=== PATIENT | male | born 1990 | race Caucasian/White ===

== ENCOUNTER 2016-09-18 09:15 | Emergency (ER) | payer BC ==
[~2016-09-18] VITALS: Ht 337.8 cm; Wt 82.2 kg
[2016-09-18 10:37] LABS: HEMATOCRIT 44.5 % (38.0-50.0); MCH 30.8 PG (29.0-34.0); MCHC 34.8 G/DL (30.0-36.0); MCV 88.5 FL (86-99); MEAN PLAT.VOLUME 10.5 uM^3 (9.0-12.4); PLATELET COUNT 244 K/uL (156-360); RBC DIS.WIDTH-CV 12.1 % (11.8-14.6); RBC DIS.WIDTH-SD 39.4 % (39-53); RED BLOOD COUNT 5.03 M/uL (4.00-5.50); WHITE BLOOD COUNT 15.8 K/uL (4.1-10.2)
[2016-09-18 11:10] LABS: ANION GAP 9 MEQ/L (2-14); CHLORIDE 98 MEQ/L (99-109); POTASSIUM 3.6 MEQ/L (3.7-5.4); SAMPLE HEMOLYSIS CHECK 0; SAMPLE ICTERIC CHECK 0; SAMPLE LIPEMIA CHECK 0; SODIUM 131 MEQ/L (136-147)
[2016-09-18 11:16] LABS: GFR ESTIMATE (CALCULATED) > 59 mL/min/; GLUCOSE 113 mg/dL (70-99); LIPASE 16 U/L (1.0-51.0); UREA NITROGEN (BUN) 7 mg/dL (9-23)
[2016-09-18 12:09] LABS: ADD MIUA? YES; BILIRUBIN NEGATIVE; BLOOD NEGATIVE; COLOR YELLOW ((YELLOW)); GLUCOSE (STRIP) NEGATIVE; KETONES NEGATIVE; LEUKOCYTES NEGATIVE; NITRITE NEGATIVE; PROTEIN (STRIP) NEGATIVE; SPECIFIC GRAVITY 1.015 (1.000-1.030); UROBILINOGEN 0.2 MG/DL (0.2-1.0)
[2016-09-18 12:22] LABS: BACTERIA RARE /HPF; EPITHELIAL CELLS NONE SEEN /HPF; MUCUS 2+ /LPF; RED BLOOD CELLS 0-5 /HPF (0-5); UCUL ADDED? NO; WHITE BLOOD CELLS 0-5 /HPF (0-5)
[2016-09-18 18:20] VITALS: BP 116/70
[2016-09-18 23:54] VITALS: BP 110/54
[2016-09-19] MEDS ORDERED: PERCOCET 5/31 TABLET PO (07:29)
[2016-09-19 08:14] LABS: HEMATOCRIT 41.6 % (38.0-50.0); MCH 30.4 PG (29.0-34.0); MCHC 33.7 G/DL (30.0-36.0); MCV 90.2 FL (86-99); MEAN PLAT.VOLUME 10.6 uM^3 (9.0-12.4); PLATELET COUNT 232 K/uL (156-360); RBC DIS.WIDTH-CV 12.2 % (11.8-14.6); RBC DIS.WIDTH-SD 40.1 % (39-53); RED BLOOD COUNT 4.61 M/uL (4.00-5.50); WHITE BLOOD COUNT 11.8 K/uL (4.1-10.2)
[2016-09-19 08:22] VITALS: BP 116/65
[2016-09-19 08:42] LABS: ANION GAP 6 MEQ/L (2-14); CHLORIDE 103 MEQ/L (99-109); GFR ESTIMATE (CALCULATED) > 59 mL/min/; GLUCOSE 109 mg/dL (70-99); POTASSIUM 4.2 MEQ/L (3.7-5.4); SAMPLE HEMOLYSIS CHECK 0; SAMPLE ICTERIC CHECK 0; SAMPLE LIPEMIA CHECK 0; SODIUM 138 MEQ/L (136-147); UREA NITROGEN (BUN) 7 mg/dL (9-23)
== END 2016-09-19 09:22 | disposition home or self-care (01) ==
LOC: EME 09:15 → EXP 09:15 → 2EAST 14:26 → 2SOUTH 15:45 → 2EAST 18:15
PROVIDERS: Nurse Practitioner Family; Physician Assistant Surgical
PROC: 0DTJ4ZZ Resection of Appendix, Percutaneous Endoscopic Approach (ICD-10-PCS; principal; 2016-09-18)
DX: K35.80 Unspecified acute appendicitis (principal); D72.829 Elevated white blood cell count, unspecified
CPT/HCPCS: 74177; 80048; 81003; 83690; 85027; 88304; 99281; 99285; G0378; J0131; J1100; J1170; J2250; J2270; J2405; J2710; J3010; J7030